=== PATIENT | male | born 1995 | race African-American/Black ===

== ENCOUNTER 2021-11-24 18:07 | Emergency (ER) | payer OTHER ==
[2021-11-24 18:13] VITALS: BP 141/53; PULSE 56; TEMP 97.7; BMI 20.8
== END 2021-11-24 19:42 | disposition home or self-care (01) ==
LOC: JER 18:07
DX: R07.89 Other chest pain (principal); Z11.52 Encounter for screening for COVID-19
CPT/HCPCS: 71046-TC-FY; 93005; 93010; 99284-25; C9803; U0003; U0005